=== PATIENT | female | born 2005 | race African-American/Black ===

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

== ENCOUNTER 2023-06-23 18:58 | Emergency (ER) | payer OTHER ==
[2023-06-23] MEDS ORDERED: Ketorolac Tromethamine 30 MG (1 mL) VIAL ONE (20:21)
[2023-06-23] MEDS ORDERED: Dexamethasone 4 mg/ml Vial ONE (20:22)
[2023-06-23 20:28] LABS: Influenza A by NAA Not Detected (NotDetected); SARS-CoV-2 NAA Rapid Test Not Detected (NotDetected)
== END 2023-06-23 20:45 | disposition home or self-care (01) ==
LOC: ERS 18:58
DX: J11.1 Influenza due to unidentified influenza virus with other respiratory manifestations (principal)
CPT/HCPCS: 87081; 87430; 96372; 99283; J1100; J1885

== ENCOUNTER 2025-01-07 14:07 | Emergency (ER) | payer SELFPAY ==
[2025-01-07 16:15] LABS: #Basophils 0.03 10x3/uL (0.0-0.2); #Eosinophils 0.15 10x3/uL (0.0-0.7); #Monocytes 0.42 10x3/uL (0.11-0.59); #Neutrophils 3.55 10x3/uL (1.40-6.50); %Basophils 0.5 % (0.0-1.0); %Eosinophils 2.3 % (0.0-10.0); %Lymphocytes 35.2 % (21.0-51.0); %Monocytes 6.5 % (0.0-10.0); %Neutrophils 55.3 % (42.0-75.0); Hematocrit 39.7 % (36.0-47.0); Hemoglobin 12.5 g/dL (12.0-16.0); Mean Corpuscular Hemoglobin 24.7 pg (27.0-31.0); Mean Corpuscular Volume 78.5 fL (78.0-98.0); Platelet Count 380 10x3/uL (130-400); Red Blood Cell (RBC) Count 5.06 mill/uL (4.20-5.40); White Blood Cell (WBC) Count 6.42 10x3/uL (4.8-10.8)
== END 2025-01-07 16:30 | disposition home or self-care (01) ==
LOC: ERS 14:07
DX: M79.602 Pain in left arm (principal); R04.0 Epistaxis
CPT/HCPCS: 85025; 99283

== ENCOUNTER 2025-03-13 08:29 | Emergency (ER) | payer SELFPAY ==
[2025-03-13] MEDS ORDERED: Acetaminophen 500 MG TAB ONE (09:14)
== END 2025-03-13 09:28 | disposition home or self-care (01) ==
LOC: ERS 08:29
DX: J06.9 Acute upper respiratory infection, unspecified (principal); B97.89 Other viral agents as the cause of diseases classified elsewhere
CPT/HCPCS: 87428; 99283